=== PATIENT | female | born 1930 ===

== ENCOUNTER 2020-10-31 08:33 | Outpatient (CLI) | payer OTHER | END 2020-10-31 08:39 | disposition home or self-care (01) | LOC: SONOGRAMA 08:33 | PROVIDERS: ATTEND Pathology Anatomic Pathology & Clinical Pathology | DX: D34 Benign neoplasm of thyroid gland (principal); E04.1 Nontoxic single thyroid nodule; E07.89 Other specified disorders of thyroid ==